=== PATIENT | male | born 1945 | race Caucasian/White ===

== ENCOUNTER 2016-11-21 07:18 | Day surgery (SDC) | payer MEDICARE, BC ==
[2016-11-16 14:54] VITALS: BMI 25.4
[~2016-11-21 07:18] MED LIST: LACTATED RINGERS 1,000 ML IV SCH
[2016-11-21 07:31] VITALS: RESP 16; TEMP 97
[2016-11-21] MEDS ORDERED: PROPOFOL 10 MG/ML 20 ML VIAL IV ONE (08:00)
[2016-11-21] MEDS ORDERED: LIDOCAINE 1% INJ 10MG/ML (20 ML MDV) ONE (08:00)
--- NOTE | 2016-11-21 08:08 | P.GSHP ---
History of Present Illness H&P Date: 11/21/16 This is a 70-year-old male who presents today for screening colonoscopy. Screening colonoscopy - Constitutional Constitutional: Reports as per HPI Past Medical History Past Medical History: Hyperlipidemia, Hypertension History of Any Multi-Drug Resistant Organisms: None Reported Past Surgical History: No Surgical Hx Reported Additional Past Surgical History / Comment(s): COLONOSCOPY Past Anesthesia/Blood Transfusion Reactions: No Reported Reaction Additional Past Anesthesia/Blood Transfusion Reaction / Comment(s): no prev anesthia Past Psychological History: No Psychological Hx Reported Smoking Status: Never smoker Past Alcohol Use History: Occasional Past Drug Use History: None Reported - Past Family History Father Family Medical History: Cancer Mother Family Medical History: Coronary Artery Disease (CAD), Seizure Disorder Medications and Allergies Home Medications Medication Instructions Recorded Confirmed Type Aspirin [Adult Low Dose Aspirin EC] 81 mg PO HS 07/08/16 11/21/16 History Losartan/Hydrochlorothiazide 1 tab PO DAILY 07/08/16 11/21/16 History [Losartan-Hctz 100-25 mg Tab] Simvastatin 40 mg PO HS 07/08/16 11/21/16 History Allergies Allergy/AdvReac Type Severity Reaction Status Date / Time No Known Allergies Allergy Verified 11/16/16 14:49 Surgical - Exam Vital Signs Temp Pulse Resp BP Pulse Ox 97.0 F L 84 16 158/87 99 11/21/16 07:29 11/21/16 07:29 11/21/16 07:29 11/21/16 07:29 11/21/16 07:29 - General well developed, no distress - ENT normal pinna - Neck no masses - Respiratory normal expansion - Cardiovascular Rhythm: regular - Abdomen Abdomen: soft, non tender Assessment and Plan Plan: For screening colonoscopy
--- NOTE | 2016-11-21 08:20 | P.OP ---
Date of Procedure: 11/21/16 Preoperative Diagnosis: Screening colonoscopy Postoperative Diagnosis: Normal colon Procedure(s) Performed: Colonoscopy Anesthesia: MAC Surgeon: Mike Briones Pathology: none sent Condition: stable Description of Procedure: PROCEDURE: The patient was placed on the endoscopy table in the lateral position. Digital rectal examination was performed which revealed no abnormalities. The prostate was symmetrical without nodules. Flexible colonoscope was then placed in the patient's anus and passed throughout the entire colon. The ileocecal valve was visualized. The cecum, ascending, transverse, descending and sigmoid colon were normal. The rectum was normal as well. There were no masses, polyps or diverticula noted in the entire colon. SUMMARY OF FINDINGS: Normal colonoscopy.
[2016-11-21 08:47] VITALS: BP 131/80; PULSE 70
== END 2016-11-21 09:20 | disposition home or self-care (01) ==
LOC: ORWHC2ENDO 07:18
PROVIDERS: ATTEND Surgery
DX: Z12.11 Encounter for screening for malignant neoplasm of colon (principal); I10 Essential (primary) hypertension; E78.5 Hyperlipidemia, unspecified; Z79.82 Long term (current) use of aspirin; Z79.899 Other long term (current) drug therapy
CPT/HCPCS: G0121; J2001; J2704

== ENCOUNTER 2022-06-21 18:51 | Observation (INO) | payer MEDICARE ==
[2022-06-21] MEDS ORDERED: SODIUM CHLORIDE 0.9% 500 ML 500 ML IV STA (21:55)
--- NOTE | 2022-06-21 21:59 | ED ---
General Adult HPI - General Chief complaint: Dizziness Stated complaint: Syncopal Episodes Time Seen by Provider: 06/21/22 21:39 Source: patient, family, RN notes reviewed, old records reviewed Mode of arrival: ambulatory Limitations: no limitations - History of Present Illness Initial comments: Well-appearing 76-year-old male presents to the emergency room with family complaining of syncope last night while at a bonfire. Family states patient's legs started to shake, his head started to nod and then he passed out. She denies seizure-like activity. Family was able to shake him awake. He states he had a previous episode of syncope in December of this year. He has been worked up for syncopal episodes in the past by cardiology years ago but were unable to determine the cause. While in the waiting room today patient states he had 4 near syncopal episodes where he felt lightheaded but did not pass out. Denies any chest pain or difficulty breathing. Does have a history of hypertension, BPH and syncope. Takes losartan and simvastatin daily. -: month(s) (5) Severity scale (1-10): 0 Consistency: intermittent, now resolved Associated Symptoms: syncope Treatments Prior to Arrival: none - Related Data Home Medications Medication Instructions Recorded Confirmed Aspirin [Adult Low Dose Aspirin EC] 81 mg PO HS 07/08/16 11/21/16 Losartan/Hydrochlorothiazide 1 tab PO DAILY 07/08/16 11/21/16 [Losartan-Hctz 100-25 mg Tab] Simvastatin 40 mg PO HS 07/08/16 11/21/16 Allergies Allergy/AdvReac Type Severity Reaction Status Date / Time No Known Allergies Allergy Verified 06/21/22 19:06 Review of Systems ROS Statement: Those systems with pertinent positive or pertinent negative responses have been documented in the HPI. ROS Other: All systems not noted in ROS Statement are negative. Past Medical History Past Medical History: Hyperlipidemia, Hypertension History of Any Multi-Drug Resistant Organisms: None Reported Past Surgical History: No Surgical Hx Reported Additional Past Surgical History / Comment(s): COLONOSCOPY Past Anesthesia/Blood Transfusion Reactions: No Reported Reaction Additional Past Anesthesia/Blood Transfusion Reaction / Comment(s): no prev anesthia Past Psychological History: No Psychological Hx Reported Past Alcohol Use History: Occasional Past Drug Use History: None Reported - Past Family History Father Family Medical History: Cancer Mother Family Medical History: Coronary Artery Disease (CAD), Seizure Disorder General Exam Limitations: no limitations General appearance: alert, in no apparent distress Head exam: Present: atraumatic, normocephalic Eye exam: Present: EOMI. Absent: scleral icterus, conjunctival injection, periorbital swelling Neck exam: Present: full ROM. Absent: tenderness, meningismus, lymphadenopathy Respiratory exam: Absent: respiratory distress, accessory muscle use Cardiovascular Exam: Present: regular rate, normal heart sounds GI/Abdominal exam: Present: soft Extremities exam: Present: full ROM, normal capillary refill. Absent: tenderness, pedal edema Neurological exam: Present: alert, oriented X3, CN II-XII intact, normal gait Expanded Patient oriented to: Present: person, place, time Speech: Present: fluid speech Cranial nerves: EOM's Intact: Normal Cerebellar function: Heel to Loo: Normal Upper motor neuron: Pronator Drift: Normal Motor strength exam: RUE: 5, LUE: 5, RLE: 5, LLE: 5 Eye Response: (4) open spontaneously Motor Response: (6) obeys commands Verbal Response: (5) oriented Isha Total: 15 Psychiatric exam: Present: normal affect, normal mood Course Vital Signs 06/21/22 06/21/22 06/22/22 19:03 22:17 00:32 Temperature 98.1 F Pulse Rate 86 76 74 Pulse Rate [ 76 Apical] Respiratory 18 14 16 Rate Blood Pressure 153/89 160/94 130/84 O2 Sat by Pulse 98 95 99 Oximetry EKG Findings - EKG Results: EKG: sinus rhythm (Ventricular rate 81, ID interval 0.175, QRS 0.94, QT C.393; normal axis; no acute ST elevation) Medical Decision Making - Medical Decision Making 76-year-old male presents with syncopal episode last night and four near syncopal episodes while waiting in the emergency room to be seen. Patient states has a history of hypertension and takes losartan and simvastatin daily. Patient denies any headaches. No vision changes. No focal neurological deficits. Denies any difficulty breathing or chest pain. Denies any palpitations. EKG shows sinus rhythm with no ectopy or evidence of ST elevation. Troponin 0.012. Chest xr shows lungs clear, no active cardiopulmonary disease. Labs are unremarkable. Vital signs are stable. Patient has had no further episodes while being observed in the emergency room. Patient will be admitted for cardiology consult and echocardiogram. Patient's last echocardiogram was 2015. Family requesting Dr. Verdin. Patient is agreeable to admission. Case discussed with Dr. Farley. - Lab Data Result diagrams: 06/21/22 22:15 06/21/22 22:15 Lab Results 06/21/22 06/21/22 06/21/22 Range/Units 22:15 22:15 22:15 WBC 6.7 (3.8-10.6) k/uL RBC 4.64 (4.30-5.90) m/uL Hgb 15.0 (13.0-17.5) gm/dL Hct 42.5 (39.0-53.0) % MCV 91.7 (80.0-100.0) fL MCH 32.5 (25.0-35.0) pg MCHC 35.4 (31.0-37.0) g/dL RDW 13.2 (11.5-15.5) % Plt Count 203 (150-450) k/uL MPV 8.2 Neutrophils % 77 % Lymphocytes % 13 % Monocytes % 6 % Eosinophils % 2 % Basophils % 1 % Neutrophils # 5.2 (1.3-7.7) k/uL Lymphocytes # 0.9 L (1.0-4.8) k/uL Monocytes # 0.4 (0-1.0) k/uL Eosinophils # 0.1 (0-0.7) k/uL Basophils # 0.0 (0-0.2) k/uL PT 10.2 (9.0-12.0) sec INR 0.9 (<1.2) APTT 22.1 (22.0-30.0) sec Sodium 136 L (137-145) mmol/L Potassium 3.8 (3.5-5.1) mmol/L Chloride 96 L (98-107) mmol/L Carbon Dioxide 29 (22-30) mmol/L Anion Gap 11 mmol/L BUN 21 H (9-20) mg/dL Creatinine 0.81 (0.66-1.25) mg/dL Est GFR (CKD-EPI)AfAm >90 (>60 ml/min/1.73 sqM) Est GFR (CKD-EPI)NonAf 85 (>60 ml/min/1.73 sqM) Glucose 149 H (74-99) mg/dL Calcium 9.4 (8.4-10.2) mg/dL Magnesium 2.2 (1.6-2.3) mg/dL Total Bilirubin 1.4 H (0.2-1.3) mg/dL AST 26 (17-59) U/L ALT 21 (4-49) U/L Alkaline Phosphatase 71 (38-126) U/L Troponin I (0.000-0.034) ng/mL Total Protein 6.9 (6.3-8.2) g/dL Albumin 4.7 (3.5-5.0) g/dL 06/21/22 Range/Units 22:15 WBC (3.8-10.6) k/uL RBC (4.30-5.90) m/uL Hgb (13.0-17.5) gm/dL Hct (39.0-53.0) % MCV (80.0-100.0) fL MCH (25.0-35.0) pg MCHC (31.0-37.0) g/dL RDW (11.5-15.5) % Plt Count (150-450) k/uL MPV Neutrophils % % Lymphocytes % % Monocytes % % Eosinophils % % Basophils % % Neutrophils # (1.3-7.7) k/uL Lymphocytes # (1.0-4.8) k/uL Monocytes # (0-1.0) k/uL Eosinophils # (0-0.7) k/uL Basophils # (0-0.2) k/uL PT (9.0-12.0) sec INR (<1.2) APTT (22.0-30.0) sec Sodium (137-145) mmol/L Potassium (3.5-5.1) mmol/L Chloride (98-107) mmol/L Carbon Dioxide (22-30) mmol/L Anion Gap mmol/L BUN (9-20) mg/dL Creatinine (0.66-1.25) mg/dL Est GFR (CKD-EPI)AfAm (>60 ml/min/1.73 sqM) Est GFR (CKD-EPI)NonAf (>60 ml/min/1.73 sqM) Glucose (74-99) mg/dL Calcium (8.4-10.2) mg/dL Magnesium (1.6-2.3) mg/dL Total Bilirubin (0.2-1.3) mg/dL AST (17-59) U/L ALT (4-49) U/L Alkaline Phosphatase (38-126) U/L Troponin I <0.012 (0.000-0.034) ng/mL Total Protein (6.3-8.2) g/dL Albumin (3.5-5.0) g/dL Disposition Clinical Impression: Syncope Disposition: ADMITTED IP TO THIS [facility] Decision Date: 06/21/22 Decision Time: 23:00
[2022-06-21 22:23] LABS: Basophils % (A) 1 %; Eosinophils # (A) 0.1 k/uL (0-0.7); Eosinophils % (A) 2 %; HCT 42.5 % (39.0-53.0); Lymphocytes # (A) 0.9 k/uL (1.0-4.8); Lymphocytes % (A) 13 %; MCH 32.5 pg (25.0-35.0); MCHC 35.4 g/dL (31.0-37.0); MCV 91.7 fL (80.0-100.0); Mean Platelet Volume 8.2; Monocytes # (A) 0.4 k/uL (0-1.0); Monocytes % (A) 6 %; Neutrophils # (A) 5.2 k/uL (1.3-7.7); Neutrophils % (A) 77 %; Platelet Count 203 k/uL (150-450); RBC 4.64 m/uL (4.30-5.90); RDW 13.2 % (11.5-15.5); WBC 6.7 k/uL (3.8-10.6)
[2022-06-21 22:34] LABS: ALT 21 U/L (4-49); AST 26 U/L (17-59); African American GFR (CKD) >90 (>60 ml/min/1.73 sqM); Albumin 4.7 g/dL (3.5-5.0); Alkaline Phosphatase 71 U/L (38-126); Anion Gap 11 mmol/L; Blood Urea Nitrogen 21 mg/dL (9-20); Calcium 9.4 mg/dL (8.4-10.2); Carbon Dioxide 29 mmol/L (22-30); Chloride 96 mmol/L (98-107); Glucose 149 mg/dL (74-99); Magnesium 2.2 mg/dL (1.6-2.3); Non-African American GFR(CKD) 85 (>60 ml/min/1.73 sqM); Potassium 3.8 mmol/L (3.5-5.1); Sodium 136 mmol/L (137-145); Total Bilirubin 1.4 mg/dL (0.2-1.3); Total Protein 6.9 g/dL (6.3-8.2)
--- NOTE | 2022-06-21 22:40 | XR ---
EXAMINATION TYPE: XR chest 2V DATE OF EXAM: 06/21/2022 COMPARISON: 07/07/2016 HISTORY: Syncope TECHNIQUE: 2 views FINDINGS: Heart is normal. Lungs are clear of infiltrate. No heart failure. There are no hilar masses . Thoracic aorta is atheromatous. IMPRESSION: No active cardiopulmonary disease. Normal heart. No change. Minimal scarring in the upper lobes.
[2022-06-21 22:50] LABS: INR 0.9 (<1.2); Partial Thromboplastin Time 22.1 sec (22.0-30.0); Prothrombin Time 10.2 sec (9.0-12.0)
[2022-06-21] MEDS ORDERED: NALOXONE 0.4 MG/ML 1 ML VIAL IV PRN (23:38)
[2022-06-21] MEDS ORDERED: ACETAMINOPHEN TAB 325 MG TAB PO PRN (23:38)
--- NOTE | 2022-06-22 09:18 | CA ---
Transthoracic Echo Report Name: Alfonso Dougherty Age: 76 Gender: M : 1945 Exam Date: 06/22/2022 08:12 Exam Location: [place] [facility] Ht (in): 67 Wt (lb): 170 Ordering Physician: Vinay Lane Attending/Referring Phys: [place] Eli Wetzel RDCS Procedure CPT: Indications: Syncope Cardiac Hx: Technical Quality: Good Contrast 1: Total Dose (mL): Contrast 2: Total Dose (mL): MEASUREMENTS (Male / Female) Normal Values 2D ECHO LV Diastolic Diameter PLAX 3.6 cm 4.2 - 5.9 / 3.9 - 5.3 cm LV Systolic Diameter PLAX 2.6 cm IVS Diastolic Thickness 1.4 cm 0.6 - 1.0 / 0.6 - 0.9 cm LVPW Diastolic Thickness 1.4 cm 0.6 - 1.0 / 0.6 - 0.9 cm LV Relative Wall Thickness 0.8 RV Internal Dim ED PLAX 3.6 cm LA Systolic Diameter LX 3.6 cm 3.0 - 4.0 / 2.7 - 3.8 cm LA Volume 54.1 cm??? 18 - 58 / 22 - 52 cm??? M-MODE Aortic Root Diameter MM 2.9 cm MV E Point Septal Separation 0.5 cm AV Cusp Separation MM 1.6 cm DOPPLER AV Peak Velocity 169.8 cm/s AV Peak Gradient 11.5 mmHg AI Peak Velocity 487.9 cm/s AI Peak Gradient 95.2 mmHg AI Pressure Half Time 644.2 ms MV Area PHT 3.1 cm??? Mitral E Point Velocity 86.1 cm/s Mitral A Point Velocity 110.2 cm/s Mitral E to A Ratio 0.8 MV Deceleration Time 246.4 ms MV E' Velocity 4.7 cm/s Mitral E to MV E' Ratio 18.1 TR Peak Velocity 298.6 cm/s TR Peak Gradient 35.7 mmHg Right Ventricular Systolic Press 40.5 mmHg FINDINGS Left Ventricle Left ventricular ejection fraction is estimated at 55-60 %. Small left ventricular cavity. Moderate concentric left ventricular hypertrophy. Right Ventricle Mild right ventricular dilatation. Mild pulmonary hypertension. Right Atrium Normal right atrial size. Left Atrium Normal left atrial size. No evidence for an atrial septal defect. Mitral Valve Mitral valve thickened. Mild mitral annular calcification. Mild mitral regurgitation. Aortic Valve Trileaflet aortic valve. Calcified AOV, mild aortic regurgitation. Eccentric aortic regurgitation jet directed at the ventricular septum. Tricuspid Valve Structurally normal tricuspid valve. Mild tricuspid regurgitation. Pulmonic Valve Structurally normal pulmonic valve. Mild pulmonic regurgitation. Pericardium Normal pericardium. No pericardial effusion. Aorta Normal size aortic root and proximal ascending aorta. CONCLUSIONS Normal LV systolic function Mild mitral regurgitation Mild aortic regurgitation Previewed by: Dr. Bobo Sylvester MD (Electronically Signed) Final Date: 22 June 2022 09:17
--- NOTE | 2022-06-22 09:39 | P.CRDCN ---
History of Present Illness History of present illness: This is a 76 year old male with a past medical history of hypertension, history of syncope with workup in 2016. 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 We have been consulted for syncope. Patient presents to the ER with multiple episodes of presyncope and episode of syncope. night he was sitting at the [facility] with family. He was sitting in the chair and had an episode of syncope where he lost consciousness for less than a minute per family. His noticed his bilateral legs shaking. He remembers his shaking him to have him wake up. He did not have another episode. Yesterday he had 3 episodes of presyncope. He was sitting at home and felt as if he may pass out. He felt lightheaded, difficult to describe symptoms. This again lasted about less than a minute and resolved. He did not lose consciousness yesterday. He came to the ER for further evaluation. No chest pain, palpitations, dizziness, nausea, vomiting, abdominal pain, pain, shortness of breath. No cough, fever or chills. Denies any history of CAD, [place], Stroke, diabetes, arrhythmia, seizures. Denies tobacco use, alcohol use or illicit drug use. Since admission, patient without any symptoms of lightheadedness, syncope or near syncope. DIAGNOSTICS * EKG reveals sinus rhythm, heart rate 81, occasional PAC, no acute ischemia noted. * echocardiogram revealed EF 5560 percent, moderate concentric LVH, mild aortic regurgitation, mild mitral regurgitation * Telemetry tracings indicatesinus rhythm with heart rate in the 50s to 60s, artifact noted, no acute arrhythmia noted. * Chest xray no acute cardiopulmonary process * Laboratory reviewed, troponin negative, sodium 136, potassium 3.8, BUN 21, serum crit 0.8, magnesium 2.2, CBC unremarkable * Stress echo in 2016 with no evidence of stress-induced ischemia * Current home cardiac medications include simvastatin 40 mg nightly, losartan/surgical thiazide 36007 milligrams daily, aspirin 81 mg daily * Holter monitor in 2016 revealed average heart rate is 77 bpm, Baseline rhythm: NSR, no episodes of bradycardia, no tachycardia episodes, no pauses exceeding 2 seconds, no ventricular ectopy, no supraventricular ectopies noted. REVIEW OF SYSTEMS At the time of my exam: CONSTITUTIONAL: Denies fever or chills. CARDIOVASCULAR: Denies chest pain, shortness of breath, orthopnea, PND or palpitations. RESPIRATORY: Denies cough. GASTROINTESTINAL: Denies abdominal pain, diarrhea, constipation, nausea or vomiting. MUSCULOSKELETAL: Denies myalgias. NEUROLOGIC: Denies numbness, tingling, headacbe or weakness. ENDOCRINE: Denies fatigue, weight change, polydipsia or polyurina. GENITOURINARY: Denies burning, hematuria or urgency with micturation. HEMATOLOGIC: Denies history of anemia or bleeding. PHYSICAL EXAMINATION Blood pressure 136/90, heart rate 66, afebrile, saturations 95% room air CONSTITUTIONAL: No apparent distress. HEENT: Head is normocephalic. Pupils are equal, round. Sclerae anicteric. Mucous membranes of the mouth are moist. No JVD. No carotid bruit. CHEST EXAMINATION: Lungs are clear to auscultation. No chest wall tenderness is noted on palpation or with deep breathing. HEART EXAMINATION: Regular rate and rhythm. S1, S2 heard. systolic murmur at apex. No gallops or rub. ABDOMEN: Soft, nontender. Positive bowel sounds. EXTREMITIES: 2+ peripheral pulses, no lower extremity edema and no calf tenderness. NEUROLOGIC EXAMINATION: Patient is awake, alert and oriented x3. ASSESSMENT Syncope History of hypertension Dyslipidemia PLAN 2D echocardiogram obtained and reviewed Continue cardiac telemetry Obtain another troponin, TSH, and D-dimer Obtain orthostatic vital signs Continue to monitor for additional 24 hours on cardiac telemetry Further recommendations based on clinical course Nurse practitioner note has been reviewed by physician. Signing provider agrees with the documented findings, assessment, and plan of care. Past Medical History Past Medical History: Hyperlipidemia, Hypertension History of Any Multi-Drug Resistant Organisms: None Reported Past Surgical History: No Surgical Hx Reported Additional Past Surgical History / Comment(s): COLONOSCOPY Past Anesthesia/Blood Transfusion Reactions: No Reported Reaction Additional Past Anesthesia/Blood Transfusion Reaction / Comment(s): no prev anesthia Past Psychological History: No Psychological Hx Reported Past Alcohol Use History: Occasional Past Drug Use History: None Reported - Past Family History Father Family Medical History: Cancer Mother Family Medical History: Coronary Artery Disease (CAD), Seizure Disorder Medications and Allergies Home Medications Medication Instructions Recorded Confirmed Type Aspirin [Adult Low Dose Aspirin EC] 81 mg PO HS 07/08/16 06/22/22 History Losartan/Hydrochlorothiazide 1 tab PO DAILY 07/08/16 06/22/22 History [Losartan-Hctz 100-25 mg Tab] Simvastatin 40 mg PO HS 07/08/16 06/22/22 History Allergies Allergy/AdvReac Type Severity Reaction Status Date / Time No Known Allergies Allergy Verified 06/22/22 08:31 Physical Exam Vitals: Vital Signs Temp Pulse Pulse Resp BP Pulse Ox 06/22/22 06:51 66 14 136/90 95 06/22/22 04:58 60 16 98 06/22/22 00:32 74 16 130/84 99 06/21/22 22:17 76 76 14 160/94 95 06/21/22 19:03 98.1 F 86 18 153/89 98 Intake and Output 06/21/22 06/22/22 06/22/22 22:59 06:59 14:59 Other: Weight 77.111 kg Results 06/21/22 22:15 06/21/22 22:15 Cardiac Enzymes 06/21/22 06/21/22 Range/Units 22:15 22:15 AST 26 (17-59) U/L Troponin I <0.012 (0.000-0.034) ng/mL Coagulation 06/21/22 Range/Units 22:15 PT 10.2 (9.0-12.0) sec APTT 22.1 (22.0-30.0) sec CBC 06/21/22 Range/Units 22:15 WBC 6.7 (3.8-10.6) k/uL RBC 4.64 (4.30-5.90) m/uL Hgb 15.0 (13.0-17.5) gm/dL Hct 42.5 (39.0-53.0) % Plt Count 203 (150-450) k/uL Comprehensive Metabolic Panel 06/21/22 Range/Units 22:15 Sodium 136 L (137-145) mmol/L Potassium 3.8 (3.5-5.1) mmol/L Chloride 96 L (98-107) mmol/L Carbon Dioxide 29 (22-30) mmol/L BUN 21 H (9-20) mg/dL Creatinine 0.81 (0.66-1.25) mg/dL Glucose 149 H (74-99) mg/dL Calcium 9.4 (8.4-10.2) mg/dL AST 26 (17-59) U/L ALT 21 (4-49) U/L Alkaline Phosphatase 71 (38-126) U/L Total Protein 6.9 (6.3-8.2) g/dL Albumin 4.7 (3.5-5.0) g/dL Current Medications Generic Name Dose Route Start Last Admin Trade Name Freq PRN Reason Stop Dose Admin Acetaminophen 650 mg 06/21/22 23:38 Acetaminophen Tab 325 Mg Tab PO Q6HR PRN Mild Pain or Fever > 100.5 Naloxone HCl 0.2 mg 06/21/22 23:38 Naloxone 0.4 Mg/Ml 1 Ml Vial IV Q2M PRN Opioid Reversal Intake and Output 06/21/22 06/22/22 06/22/22 22:59 06:59 14:59 Other: Weight 77.111 kg 06/21/22 22:15 06/21/22 22:15
--- NOTE | 2022-06-22 11:27 | P.HPIM ---
History of Present Illness H&P Date: 06/22/22 Chief Complaint: Syncope, Near-syncope This is a pleasant 76-year-old gentleman with past medical history of hypertension, hyperlipidemia , BPH, syncope-prior workup 2015-etiology unclear and multiple other medical issue presented to the ER with complaints of near syncope, syncope. Reports he was at a bonfire and night with his family, lost consciousness for approximately less than a minute with bilateral lower extremity shaking as per . Denies alcohol or illicit drug use. Reports a similar presentation of syncope in December 2021. Denies incontinence of urine or stool and remembers his shaking him/waking him up with no re- occurrence during that night. He further discloses multiple episodes occurring yesterday in the ER waiting room of near syncope with vague complaints of lightheadedness lasting (less than 1 minute, spontaneously resolving. denies syncope, chest pain, palpitations or shortness of breath.Denies nausea, vomiting, diarrhea. Denies abdominal pain. Denies fevers, cough, chills or congestion. EKG reported sinus rhythm, occasional PAC, troponin negative 2, echo pending, chest x-ray reported no acute cardiopulmonary process. Hematology, coagulation panels unremarkable. Sodium 136, potassium 3.8, bicarb 29, BUN 21, creatinine 0.8, glucose 149, magnesium 2.2, total bili 1.4, TSH 1.56. Cardiology consult in place, recommendations pending. Review of Systems ROS Statement: Those systems with pertinent positive or pertinent negative responses have been documented in the HPI. ROS Other: All systems not noted in ROS Statement are negative. Past Medical History Past Medical History: Hyperlipidemia, Hypertension History of Any Multi-Drug Resistant Organisms: None Reported Past Surgical History: No Surgical Hx Reported Additional Past Surgical History / Comment(s): COLONOSCOPY Past Anesthesia/Blood Transfusion Reactions: No Reported Reaction Additional Past Anesthesia/Blood Transfusion Reaction / Comment(s): no prev anesthia Past Psychological History: No Psychological Hx Reported Past Alcohol Use History: Occasional Past Drug Use History: None Reported - Past Family History Father Family Medical History: Cancer Mother Family Medical History: Coronary Artery Disease (CAD), Seizure Disorder Medications and Allergies Home Medications Medication Instructions Recorded Confirmed Type Aspirin [Adult Low Dose Aspirin EC] 81 mg PO HS 07/08/16 06/22/22 History Losartan/Hydrochlorothiazide 1 tab PO DAILY 07/08/16 06/22/22 History [Losartan-Hctz 100-25 mg Tab] Simvastatin 40 mg PO HS 07/08/16 06/22/22 History Allergies Allergy/AdvReac Type Severity Reaction Status Date / Time No Known Allergies Allergy Verified 06/22/22 08:31 Physical Exam Vitals: Vital Signs Temp Pulse Pulse Resp BP Pulse Ox 06/22/22 06:51 66 14 136/90 95 06/22/22 04:58 60 16 98 06/22/22 00:32 74 16 130/84 99 06/21/22 22:17 76 76 14 160/94 95 06/21/22 19:03 98.1 F 86 18 153/89 98 Intake and Output 06/21/22 06/22/22 06/22/22 22:59 06:59 14:59 Other: Weight 77.111 kg PHYSICAL EXAM: VITAL SIGNS: As above GENERAL: Sitting up on stretcher, no acute distress HEENT: Conjunctivae normal. eyes normal. NECK: No JVD. No thyroid enlargement. No LNs CARDIOVASCULAR: S1, S2 regular. Systolic murmur RESPIRATION: Unlabored Breath sounds diminished in the bases. No rhonchi or crackles. No bronchial breathing. ABDOMEN: Soft, nondistended, nontender . No guarding. no masses palpable. No ascites, No hepatosplenomegaly.Bowel sounds heard. LEGS: No edema. no swelling PSYCHIATRY: Alert and oriented X3, mood and affect normal. NERVOUS SYSTEM: Cranial N 2-12 grossly normal.No focal deficits. Strength and sensation grossly intact.. Skin: Warm and dry, no rash . Results CBC & Chem 7: 06/21/22 22:15 06/21/22 22:15 Labs: Abnormal Lab Results - Last 24 Hours (Table) 06/21/22 06/21/22 Range/Units 22:15 22:15 Lymphocytes # 0.9 L (1.0-4.8) k/uL Sodium 136 L (137-145) mmol/L Chloride 96 L (98-107) mmol/L BUN 21 H (9-20) mg/dL Glucose 149 H (74-99) mg/dL Total Bilirubin 1.4 H (0.2-1.3) mg/dL Assessment and Plan Assessment: Syncope, etiology unclear Hypertension Hyperlipidemia Plan: Continue on current medication regime, monitoring and symptomatic treatment. Orthostatic vital signs. Evaluated by cardiology with recommendations noted and appreciated. Echo pending. Prior workup in 2016 reported as etiology unclear- Neurology consulted. Prognosis guarded given multiple complex medical issues. The impression and plan of care has been dictated as directed. : I performed a history and examination of this patient, discussed the same with the dictator. I agree with the dictator's note ,documented as a scribe. Any additional findings or plans will be noted.
--- NOTE | 2022-06-22 15:36 | P.CNNES ---
History of Present Illness Consult date: 06/22/22 Requesting physician: Leti Juarez Reason for Consult: Syncope History of Present Illness: Patient is a 76-year-old right-handed male with history of syncopal spells in the past came to the hospital yesterday at 6:51 PM for recurrent syncopal spells. Patient and his were present at the time of this interview. Patient on Saturday, 2 days ago at 8:30 PM was sitting by the adamfire and while sitting there, all of a sudden he passed out. His noticed that his legs were shaking. His did some sternal rub, and he came around in a minute or so. Yesterday on , he had total of 3 spells, the first 2 spells occurred at home when he was home alone, he felt weird sensation, like will pass out. He believes that he did not pass out. No one witnessed those spells. There is a third event occurred at dinner at 6 PM when while sitting, he passed out. He breaks out in cold sweat after those events. Patient's brought him to the ER and while he was waiting to be seated, he had another spell at 7:30 PM. Patient was hospitalized. Patient's said that he had another event at around 12:30 after midnight last night. Patient denies any tongue bite or loss of control of urine with any of the spell. The only time some motor activity was noted with the first event with snehal as above. He states that prior to these events, he has a very transient weird sensation before he passes out. Vital signs on arrival blood pressure 153/89, pulse rate 86 and vision 98.1. Blood test shows normal CBC, PT/PTT, sodium 136 potassium 3.8, BUN 21, creatinine 0.81. Hepatic panel is normal, troponin negative. TSH is normal 1.56. Hemoglobin A1c 5.9 on 12/12/2021. Chest x-ray showed no active cardiopulmonary disease. Normal heart. EKG shows sinus rhythm with occasional supraventricular premature complexes. Patient has history of syncopal spells in 2016 as well, when he was sitting in a chair at home and he fell down on the ground. After couple events, patient was hospitalized and was seen by Dr. Villegas. Patient had an EEG performed on 07/09/2016, which was normal. At that time patient had presented with syncope and collapse. Patient was diagnosed with possible vasovagal syncope. 2-D echo and 30 day event monitor was also recommended. Patient subsequently stopped having syncopal spells. He may have had very few, about 1-2 spells if at all. In December 2021 he was sitting at a bar stool when he fell off the stool and smacked his head. Each time he feels like a brief feeling coming on, as if something is going to happen before he passes out. Most of these spells have occurred sitting, although couple times he has felt feeling coming on while he was standing up in the shower. Patient denies any history of concussions except mild head injury as a child. Patient has never smoked tobacco, drinks couple beers very occasionally. Does not drink on a regular basis. Patient states that his mother at 70 years of age also was passing out. She was diagnosed with epilepsy and was followed up with Dr. Villegas, who treated her for seizures disorder. Patient's brother at age 90. Review of Systems Constitutional: Denies chills, Denies fever Eyes: denies blurred vision, denies pain Ears, nose, mouth and throat: Denies headache, Denies sore throat Cardiovascular: Denies chest pain, Denies shortness of breath Respiratory: Denies cough Gastrointestinal: Denies abdominal pain, Denies diarrhea, Denies nausea, Denies vomiting Musculoskeletal: Denies myalgias Integumentary: Denies pruritus, Denies rash Neurological: Denies double vision, Denies loss of vision, Denies numbness, Denies tingling, Denies weakness Psychiatric: Denies anxiety, Denies depression Endocrine: Denies fatigue, Denies polydipsia, Denies weight change Hematologic/Lymphatic: Denies easy bruising Allergic/Immunologic: Denies persistent infections Past Medical History Past Medical History: Hyperlipidemia, Hypertension History of Any Multi-Drug Resistant Organisms: None Reported Past Surgical History: No Surgical Hx Reported Additional Past Surgical History / Comment(s): COLONOSCOPY Past Anesthesia/Blood Transfusion Reactions: No Reported Reaction Additional Past Anesthesia/Blood Transfusion Reaction / Comment(s): no prev anesthia Past Psychological History: No Psychological Hx Reported Smoking Status: Never smoker Past Alcohol Use History: Occasional Past Drug Use History: None Reported - Past Family History Father Family Medical History: Cancer Mother Family Medical History: Coronary Artery Disease (CAD), Seizure Disorder Medications and Allergies Home Medications Medication Instructions Recorded Confirmed Type Aspirin [Adult Low Dose Aspirin EC] 81 mg PO HS 07/08/16 06/22/22 History Losartan/Hydrochlorothiazide 1 tab PO DAILY 07/08/16 06/22/22 History [Losartan-Hctz 100-25 mg Tab] Simvastatin 40 mg PO HS 07/08/16 06/22/22 History Allergies Allergy/AdvReac Type Severity Reaction Status Date / Time No Known Allergies Allergy Verified 06/22/22 08:31 Physical Examination - Vital Signs Vital Signs: Vital Signs Temp Pulse Pulse Resp BP Pulse Ox 06/22/22 11:14 66 18 134/82 96 06/22/22 06:51 66 14 136/90 95 06/22/22 04:58 60 16 98 06/22/22 00:32 74 16 130/84 99 06/21/22 22:17 76 76 14 160/94 95 06/21/22 19:03 98.1 F 86 18 153/89 98 Intake and Output 06/21/22 06/22/22 06/22/22 22:59 06:59 14:59 Other: Voiding Method Toilet Weight 77.111 kg 77.111 kg Patient is an elderly male, in no acute distress. Patient is alert awake oriented to time place and person. Speech and language functions are normal. Patient can name and repeat very well. No aphasia or dysarthria. Attention, concentration and fund of knowledge is adequate. On cranial nerve examination, pupils are equal, round and reacting to light, visual garcia are full on confrontation, with no neglect on double simultaneous stimulation. Extraocular muscles are intact with no nystagmus. Face is symmetric, tongue protrudes to the midline. Palatal elevation and sensation normal, hearing and shoulder shrug normal, facial sensation normal. On muscle strength testing, there is no pronator drift and the strength is normal in arms and legs distally and proximally. Deep tendon reflexes are symmetric biceps 1, brachioradialis 1, knees 2, ankles 1 and plantars downgoing bilaterally. Sensory to touch is equal with no neglect on double simultaneous stimulation. Cerebellar function showed no ataxia for kahtgd-bm-kzin testing, although patient has tremor for mhbrke-fz-wsgq testing bilaterally, mild to moderate on the left and mild on the right side. No dysdiadochokinesia. Patient has mild ataxia for quvm-gb-wdli testing bilaterally. Tone and bulk of muscles normal. No tremor at rest. Gait deferred.. On general examination, there is no carotid bruit or murmur, S1-S2 audible. Chest is clear on consultation. Abdomen is soft nontender. No organomegaly, bowel sounds present. Peripheral pulses are present. No edema. Results - Laboratory Findings CBC and BMP: 06/21/22 22:15 06/21/22 22:15 Abnormal Lab Findings: Abnormal Labs 06/21/22 06/21/22 22:15 22:15 Lymphocytes # 0.9 L Sodium 136 L Chloride 96 L BUN 21 H Glucose 149 H Total Bilirubin 1.4 H Assessment and Plan Assessment: * Recurrent syncopal spells, rule out arrhythmia versus seizure. Seizure is unlikely, as there is no significant postictal state. Vasovagal syncope less likely. Most of the spells have occurred while in a seated position. * Benign essential tremor. * Hypertension * Hyperlipidemia Plan: * Urgent EEG evaluate for epileptiform activity. * 2-D echo revealed normal left ventricle systolic function. Mild MR. Mild aor tic regurgitation. EF is 55-60%. * Suggest 30 day event monitor to evaluate for arrhythmia, or a loop recorder placement. * Orthostatics checked were positive. Supine blood pressure 161/76 pulse 75, sitting 162/92 pulse 86 and standing up 138/88 pulse 81. May also consider tilt table test to evaluate for various causes of syncope. Cardiology on board. * CT head rule out any structural abnormality. * B12, folate. TSH is normal. * Telemetry monitoring showing sinus rhythm in the 70s. Apparently when patient had a syncopal spell last night at 12:30 AM, he was not on telemetry monitoring, as the telemetry started on the floor at 2 PM today. * Patient informed of [place] state law of not driving unless free of these syncopal spells for 6 months. He should not climb ladders, operate dangerous machinery or unsupervised swimming. Discussed with patient's also in detail. * Thank you for the consult. Addendum: EEG was performed today. It is normal EEG during wakefulness, drowsiness and stage II sleep. No epileptiform activity was seen. CT head: No acute intracranial process. No other neurological workup indicated. Suggest aggressive cardiac workup and perhaps further evaluation of orthostatic hypotension with tilt table test. Neurologically clear. Dr. Michel Ferguson will be available from tomorrow for any neurological concerns.
--- NOTE | 2022-06-22 18:57 | CT ---
EXAMINATION TYPE: CT brain wo con CT DLP: 1162.8 mGycm, Automated exposure control for dose reduction was used. DATE OF EXAM: 06/22/2022 6:37 PM COMPARISON: None. CLINICAL INDICATION:Male, 76 years old with history of Recurrent syncope, ataxia, Recurrent syncope, ataxia TECHNIQUE: Brain: Axial CT images of the brain were obtained with coronal and sagittal reformats created and rev iewed. Contrast used: None. Oral contrast used: None. FINDINGS: Brain: Extra-axial spaces: No abnormal extra-axial fluid collections. Ventricular system: Within normal limits Cerebral parenchyma: No acute intraparenchymal hemorrhage or mass effect. The rodriguez-white junction is well differentiated. Cerebellum: Unremarkable. Mass effect: No evidence of midline shift. Intracranial vasculature: Atherosclerotic calcifications of the intracranial vessels. Soft tissues: Normal. Calvarium/osseous structures: No depressed skull fracture. Paranasal sinuses and mastoid air cells: Mild scattered paranasal sinus disease. Visualized orbits: bilateral aphakia. IMPRESSION: No acute intracranial process.
[2022-06-23 09:56] VITALS: BP 133/76; PULSE 93; RESP 16; TEMP 97.9
--- NOTE | 2022-06-23 11:35 | EEG ---
ELECTROENCEPHALOGRAM REPORT PREAMBLE: This is a 76-year-old male with recurrent syncopal spells. This study is performed to evaluate for any epileptiform activity. EEG FINDINGS: This is a 21-channel digital EEG recorded with video component, utilizing 10/20 international system with referential and bipolar montages. Background consists of well developed, well regulated moderate voltage activity in 9 hertz alpha. Background is posterior dominant and reactive to eye opening and closing. There is some rhythmic muscle artifact seen with eye opening. Photic driving response was seen with some flash frequencies. Stage 2 sleep was attained with presence of vertex waves and sleep spindles. No focal or generalized epileptiform activity was seen. EKG channel showed no obvious arrhythmia. IMPRESSION: This is an abnormal EEG during wakefulness, drowsiness and stage 2 sleep. No focal, lateralized or epileptiform activity was seen. If your suspicion for seizures is high, suggest prolonged, sleep-deprived EEG. MMODL / IJN: [id number] /
[2022-06-23] MEDS ORDERED: ASPIRIN 81 MG PO SCH (12:15)
--- NOTE | 2022-06-23 13:19 | P.PN ---
Subjective Progress Note Date: 06/23/22 PROGRESS NOTE The patient is a 76-year-old male who presented with a syncopal episode. He has been doing well since his admission without any further episodes. His breathing is been stable, he denies any chest discomfort, dizziness or palpitations. On the monitor he is in sinus mechanism. His echo showed a normal left ventricle systolic function was mild mitral and aortic regurgitation as well as tricuspid regurgitation. His brain CT showed no acute changes. His EEG showed no focal epileptiform activity. Medications: Aspirin, Lipitor 40 mg daily PHYSICAL EXAMINATION: Blood pressure 133/70 heart rate 90 LUNGS: Clear to auscultation HEART: Regular rate and rhythm, S1, S2. No S3. No systolic murmur ABDOMEN: Soft, nontender, no organomegaly EXTREMETIES: No edema LAB: Troponin less than 0.012, potassium 3.8 IMPRESSION: 1. Syncope, etiology unclear. No evidence of arrhythmia so far. 2. History of hypertension 3. History of hyperlipidemia PLAN: 1. Continue present therapy 2. Increase physical activity 3. From the cardiac standpoint he stable to be discharged home and follow-up w viri Sylvester for further evaluation and probable further cardiac workup to rule out any evidence of arrhythmia including long-term monitoring 4. I have discussed those findings with the patient and his family in detail. Objective - Vital Signs Vital signs: Vital Signs Temp 97.9 F 06/23/22 08:00 Pulse 93 06/23/22 08:00 Resp 16 06/23/22 08:00 BP 133/76 06/23/22 08:00 Pulse Ox 95 06/23/22 08:00 FiO2 21 06/22/22 20:53 Intake & Output 06/22/22 06/23/22 06/23/22 18:59 06:59 18:59 Weight 77.111 kg Other: Voiding Method Toilet Toilet # Voids 1 1 1 - Labs CBC & Chem 7: 06/21/22 22:15 06/21/22 22:15
--- NOTE | 2022-06-24 01:55 | DS ---
DISCHARGE SUMMARY FINAL DIAGNOSES: 1. Syncope, possibly orthostatic hypotension, possibly vasovagal, rule out cardiac arrhythmia. 2. History of hypertension. 3. Hyperlipidemia. DISCHARGE DISPOSITION: The patient will be discharged in stable condition with guarded prognosis. Discharge after cleared by Cardiology. HISTORY OF PRESENT ILLNESS: This is a 76-year-old gentleman with a past medical history of multiple medical problems being followed by Dr. Moreno and the patient was admitted with multiple syncopal episodes. The patient had same symptoms about apparently 8 years ago. The patient was evaluated during that time. Currently, the patient did workup including Cardiology and Neurology consultations. Please refer to Cardiology and Neurology consultations. Telemetry was also negative. I recommend the patient follow up closely with Cardiology and outpatient Neurology and also with Dr. Moreno as recommended. PHYSICAL EXAMINATION: VITAL SIGNS: Stable. CARDIOVASCULAR: S1, S2. ABDOMEN: Soft. NERVOUS SYSTEM: No focal deficits. DISCHARGE MEDICATIONS: Continue with current medications. Change losartan/hydrochlorothiazide to losartan 100 mg daily and discontinue the hydrochlorothiazide and continue to monitor. Followup labs with Dr. Moreno. Follow up with Neurology as recommended. MMODL / IJN: [id number] /
[2022-06-24] MEDS ORDERED: ATORVASTATIN 40 MG TAB PO SCH (09:00)
== END 2022-06-23 14:05 | disposition home or self-care (01) ==
LOC: EC 18:51 → 6NMEDSUR 06-22 00:57
PROVIDERS: ADMIT Family Medicine; ATTEND Family Medicine
DX: R55 Syncope and collapse (principal); I10 Essential (primary) hypertension; E78.5 Hyperlipidemia, unspecified; N40.0 Benign prostatic hyperplasia without lower urinary tract symptoms; I70.0 Atherosclerosis of aorta; I08.3 Combined rheumatic disorders of mitral, aortic and tricuspid valves; G25.0 Essential tremor; I67.2 Cerebral atherosclerosis; I37.1 Nonrheumatic pulmonary valve insufficiency; I27.20 Pulmonary hypertension, unspecified; Z79.82 Long term (current) use of aspirin; Z80.9 Family history of malignant neoplasm, unspecified; Z82.49 Family history of ischemic heart disease and other diseases of the circulatory system; Z82.0 Family history of epilepsy and other diseases of the nervous system
CPT/HCPCS: 96361 ×3; 96360; 99285; 36415; 94760; 95816; 93005; 93306; 85379; 80053; 84443; 82607; 82746; 83735; 84484 ×2; 85025; 85610; 85730; 71046; 70450; G0378 ×2